=== PATIENT | female | born 1985 | race Caucasian/White ===

== ENCOUNTER 2017-11-07 14:41 | Outpatient (CLI) | payer OTHER | END 2017-11-07 17:00 | disposition home or self-care (01) | LOC: HPC 14:41 | DX: N63.11 Unspecified lump in the right breast, upper outer quadrant (principal); Z80.3 Family history of malignant neoplasm of breast; Z80.42 Family history of malignant neoplasm of prostate; Z80.7 Family history of other malignant neoplasms of lymphoid, hematopoietic and related tissues; Z83.3 Family history of diabetes mellitus; Z82.49 Family history of ischemic heart disease and other diseases of the circulatory system; Z88.0 Allergy status to penicillin | CPT/HCPCS: Z7500 ==

== ENCOUNTER 2019-08-08 08:13 | Day surgery (SDC) | payer OTHER ==
[2019-08-08] MEDS: LACTATED RINGER'S 1,000 ML IV (09:33)
[2019-08-08] MEDS ORDERED: ROPIVACAINE 0.5 % 30 ML VIAL (10:31)
[2019-08-08] MEDS ORDERED: MIDAZOLAM 1 MG/ML 2 ML INJ (10:43)
[2019-08-08] MEDS ORDERED: CLINDAMYCIN 900 MG (PMX) 50 ML IVPB (11:14)
[2019-08-08] MEDS ORDERED: NEOSTIGMINE 3 MG/3 ML SYRINGE (11:35)
[2019-08-08] MEDS ORDERED: SUCCINYLCHOLINE CHLORIDE 100 MG/5 ML SYG IV (11:35)
[2019-08-08] MEDS ORDERED: PROPOFOL 20 ML (11:35)
[2019-08-08] MEDS ORDERED: ROCURONIUM 50 MG INJ (11:35)
[2019-08-08] MEDS ORDERED: LIDOCAINE 2% (SDV) 5 ML INJ (11:35)
[2019-08-08] MEDS ORDERED: GLYCOPYRROLATE 0.4 MG INJ ×2 (11:35→11:59)
[2019-08-08] MEDS: EPINEPHrine 1 MG/ML 30 ML INJ (11:37)
[2019-08-08] MEDS ORDERED: ONDANSETRON 4 MG INJ (11:59)
[2019-08-08] MEDS ORDERED: METOCLOPRAMIDE 10 MG INJ IV (12:00)
[2019-08-08] MEDS ORDERED: MIDAZOLAM 1 MG/ML 2 ML INJ IV (12:00)
[2019-08-08] MEDS ORDERED: DIPHENHYDRAMINE 50 MG INJ IV (12:00)
[2019-08-08] MEDS ORDERED: OXYCODONE/ACETAMINOPHEN (5/325) TAB PO ×2 (12:00)
[2019-08-08] MEDS ORDERED: ONDANSETRON 4 MG INJ IV ×2 (12:00→12:30)
[2019-08-08] MEDS ORDERED: FENTAnyl 50 MCG/ML VIAL IV ×3 (12:00)
[2019-08-08] MEDS ORDERED: MEPERIDINE 25 MG INJ IV (12:00)
[2019-08-08] MEDS ORDERED: HYDROCODONE/APAP (5/325) TAB PO ×2 (12:30)
== END 2019-08-08 15:28 | disposition home or self-care (01) ==
LOC: SDS 08:13
DX: M25.811 Other specified joint disorders, right shoulder (principal); S46.211D Strain of muscle, fascia and tendon of other parts of biceps, right arm, subsequent encounter; X58.XXXD Exposure to other specified factors, subsequent encounter; M75.101 Unspecified rotator cuff tear or rupture of right shoulder, not specified as traumatic
CPT/HCPCS: 29826